=== PATIENT | female | born 1930 | race Caucasian/White ===

== ENCOUNTER 2017-12-28 10:45 | Outpatient (CLI) | payer MEDICARE ==
[~2017-12-28] VITALS: Ht 147.3 cm; Wt 63.5 kg
[2017-12-28] MEDS ORDERED: LEXAPRO10 MG ORAL (11:35)
[2017-12-28] MEDS ORDERED: [UNRECOGNIZED DRUG - REMARK] PO (11:35)
[2017-12-28 11:36] VITALS: BP 141/62
--- NOTE | 2017-12-28 18:43 | GI Initial Consult Note ---
History of Present Illness General Date patient seen: Dec 28, 2017 Time patient seen: 11:00 Referring physician: CHRIS Reason for Consultation: HEMMORHOIDS Present Illness HPI 87 year old female patient referred by Dr. Wells for c/o of rectal pain and bleed. The patient is accompanied by her daughter, ambulates using a walker and is a fall risk. She's in no apparent distress, denies any abdominal pain N/ V/D or constipation. States she has a history of hemorrhoidal banding and presents today with complaint of her hemorrhoids. Given her advanced age, her last endoscopy or colonoscopy is not known at this time. Denies any unintentional weight loss or changes in dietary habits. Home Meds Reported Medications Escitalopram Oxalate* (LEXAPRO*) 10 Mg Tablet, ORAL DAILY, TAB 12/28/17 [cholesterol power] No Conflict Check, PO BID 12/28/17 Med list reviewed/reconciled: Yes Allergies: Coded Allergies: [id number] REDUCTASE INHIBITOR (Verified Allergy, Severe, 12/28/17) Patient History History Provided By: Patient, Medical Record PMH Narrative Depression Sleep Apnea HLD Past Surgical History: R Lumpectomy Hemorrhoidal banding Rt Hip fracture Family History Narrative Father passed from unknown type of cancer. Social History: Denies: smoking, alcohol use, drug use, other Review of Systems All Other Systems: negative except mentioned in HPI Physical Exam Vital Signs Date Time Temp Pulse Resp B/P (MAP) Pulse Ox O2 Delivery O2 Flow Rate FiO2 12/28/17 11:36 98.2 72 16 141/62 96 98.2 Sp02 EP Interpretation: reviewed, normal General Appearance: well appearing, no apparent distress, alert Head: normocephalic EENT: PERRL/EOMI, normal ENT inspection Neck: supple Respiratory: normal breath sounds, no respiratory distress Cardiovascular: normal rate Gastrointestinal: normal inspection, non tender, soft, normal bowel sounds, non -distended Rectal: deferred Genitourinary: no CVA tenderness Musculoskeletal: normal inspection, back normal Neurologic: normal inspection, alert, oriented x3, responsive Psychiatric: normal inspection, judgement/insight normal, memory normal Skin: normal inspection, normal color, no rash, warm/dry, palpation normal, well hydrated Lymphatic: normal inspection, no adenopathy GI: Plan Problems: (1) Depression (2) Sleep apnea (3) HLD (hyperlipidemia) (4) Bleeding hemorrhoid (5) H/O lumpectomy Plan Rx Annusol-HC Sitz bath education RTC prn Seen with Dr. Bhatt. Thank you for this patient referral. The patient was seen and examined at bedside and all new and available data was reviewed in the patients chart. I agree with the above findings, impression and plan. (Patient seen earlier today. Signature stamp does not reflect patient encounter time.). - MD Vesta PhamSage Memorial HospitalKarina STUDIO DATA ANALYST Dec 28, 2017 18:43
== END 2017-12-28 11:15 | disposition home or self-care (01) ==
LOC: PAN 10:45
DX: K64.9 Unspecified hemorrhoids (principal); F32.9 Major depressive disorder, single episode, unspecified; G47.30 Sleep apnea, unspecified; E78.5 Hyperlipidemia, unspecified; Z98.890 Other specified postprocedural states
CPT/HCPCS: 99202